=== PATIENT | male | born 1975 | race African-American/Black ===

== ENCOUNTER 2020-04-17 05:01 | Emergency (ER) | payer OTHER ==
[~2020-04-17] VITALS: Ht 175.3 cm; Wt 94.3 kg
[2020-04-17] MEDS ORDERED: MEDROL8 MG PO (07:00)
[2020-04-17] MEDS ORDERED: NAPROXEN SODIU550 MG PO ×2 (07:02)
== END 2020-04-17 07:11 | disposition home or self-care (01) ==
LOC: ER 05:01
DX: H92.01 Otalgia, right ear (principal)